=== PATIENT | male | born 1990 | race Caucasian/White ===

== ENCOUNTER 2025-01-06 18:06 | Emergency (ER) | payer MEDICARE, OTHER ==
[2025-01-06 18:34] VITALS: TEMP 97.9
[2025-01-06] MEDS: SODIUM CHLORIDE 0.9% 1,000 ML IV ONE (19:45)
[2025-01-06] MEDS: LORazepam 1 MG TAB PO STA (19:45)
--- NOTE | 2025-01-06 20:03 | ED ---
General Adult HPI - General Chief complaint: Alcohol Stated complaint: etoh Time Seen by Provider: 01/06/25 19:30 Source: patient, EMS, RN notes reviewed, old records reviewed Mode of arrival: EMS Limitations: no limitations - History of Present Illness Initial comments: Patient is a 34-year-old male who presents emergency department stating he wishes to be transferred for admission to [facility]. This is for alcohol abuse. He is otherwise cooperative. Denies current withdrawals. Last drink today. Presents with a family member/friend. Denies chest pain or shortness of breath. Denies any symptoms withdrawals. Denies any headaches. Is due to follow-up with his psychiatrist tomorrow. Is asking to be transferred to [facility]. Has no other acute complaints at this time. Denies any suicidal ideations, times complaints. Denies any visual or auditory hallucinations. - Related Data Allergies Allergy/AdvReac Type Severity Reaction Status Date / Time No Known Allergies Allergy Verified 01/06/25 19:49 Review of Systems ROS Statement: Those systems with pertinent positive or pertinent negative responses have been documented in the HPI. Review of Systems: CONST: Denies fever EYES: Denies blurry vision ENT: Denies nasal congestion C/V: Denies Chest pain RESP: Denies shortness of breath GI: Denies abdominal pain : Denies dysuria SKIN: Denies rash. MSK: Denies joint pain. NEURO: Denies headache ROS Other: All systems not noted in ROS Statement are negative. Past Medical History Past Medical History: No Reported History, Seizure Disorder Additional Past Medical History / Comment(s): epilepsy History of Any Multi-Drug Resistant Organisms: None Reported Past Surgical History: No Surgical Hx Reported Past Psychological History: ADD/ADHD, Anxiety, Bipolar, Depression, PTSD, Schizophrenia Smoking Status: Current every day smoker, Vaper Past Alcohol Use History: Abuse, Daily, Heavy Past Drug Use History: None Reported General Exam - General Exam Comments Initial Comments: General: Appears in no acute distress. Mildly anxious. No evidence of alcohol withdrawals at this time. HEAD: Normal with no signs of head trauma. EYES: PERRLA, EOMI, conjunctiva normal, no discharge. Pupils are 2 mm and equal bilaterally. ENT: Hearing grossly intact, normal oropharynx. RESPIRATORY: Clear breath sounds bilaterally. No wheezes, rales, or rhonchi. C/V: Regular rate and rhythm. S1 and S2 auscultated, no edema, peripheral pulses 2+ and intact throughout ABD: Abd is soft, nontender, nondistended EXT: No obvious deformity SKIN: No rashes or lesions observed on exposed skin. NEURO: Alert and oriented x 4. No acute focal deficits. Limitations: no limitations Course Vital Signs 01/06/25 18:24 Temperature 97.9 F Pulse Rate 118 H Respiratory 18 Rate Blood Pressure 126/81 O2 Sat by Pulse 98 Oximetry Medical Decision Making - Medical Decision Making Was pt. sent in by a medical professional or institution (, JAYLON, DIESEL SCOOP OPERATOR, urgent care, hospital, or [place] [facility] [place] facility...) When possible be specific @ -No Did you speak to anyone other than the patient for history (EMS, parent, family, police, friend...)? What history was obtained from this source @ -Spoke with patient's family, friend who is in agreement that she will take responsibility for him upon discharge. Did you review nursing and triage notes (agree or disagree)? Why? @ -I reviewed and agree with nursing and triage notes Were old charts reviewed (outside hosp., previous admission, EMS record, old EKG, old radiological studies, urgent care reports/EKG's, [place] [facility] facility records)? Report findings @ -No old charts were reviewed Differential Diagnosis (chest pain, altered mental status, abdominal pain women, abdominal pain men, vaginal bleeding, weakness, fever, dyspnea, syncope, headache, dizziness, GI bleed, back pain, seizure, CVA, palpatations, mental health, musculoskeletal)? @ -Alcohol intoxication, alcohol withdrawals, electrolyte abnormality. This list is not all inclusive. EKG interpreted by me (3pts min.). @ -None done X-rays interpreted by me (1pt min.). @ -None done CT interpreted by me (1pt min.). @ -None done U/S interpreted by me (1pt. min.). @ -None done What testing was considered but not performed or refused? (CT, X-rays, U/S, labs)? Why? @ -None What meds were considered but not given or refused? Why? @ -None Did you discuss the management of the patient with other professionals (professionals i.e. , JAYLON, DIESEL SCOOP OPERATOR, lab, RT, psych nurse, vp digital marketing social media and crm, fertilizer mixer, teacher, biosecurity officer, comp field case manager)? Give summary @ -No Was smoking cessation discussed for >3mins.? @ -No Was critical care preformed (if so, how long)? @ -No Were there social determinants of health that impacted care today? How? (Jose Miguel elessness, low income, unemployed, alcoholism, drug addiction, transportation, low edu. Level, literacy, decrease access to med. care, fci, rehab)? @ -No Was there de-escalation of care discussed even if they declined (Discuss DNR or withdrawal of care, Hospice)? DNR status @ -No What co-morbidities impacted this encounter? (DM, HTN, Smoking, COPD, CAD, Cancer, CVA, ARF, Chemo, Hep., AIDS, mental health diagnosis, sleep apnea, morbid obesity)? @ -Alcohol abuse Was patient admitted / discharged? Hospital course, mention meds given and route, prescriptions, significant lab abnormalities, going to OR and other pertinent info. @ -Patient is a 34-year-old male who presents emergency department asking to be transferred to [facility]. I did inform him that this is not something that we do out of our ER. He expressed understanding. He has no suicidal or homicidal ideations. Denies any hallucinations. He has no acute complaints. I did discuss with him the option of being admitted for monitoring for alcohol withdrawals and as he goes through the cessation process, however he states he would like to just go back home and drink more alcohol and follow-up with [facility] to get in there as he does not want to be admitted to the hospital. Denies any other drug use. States he is anxious and is asking for a dose of Ativan. He has no evidence of alcohol chills at this time. Vitals are within acceptable limits. States he is going to go home and drink more alcohol. I discussed with him at length, and as he does have a family/friend who is with him and is willing to take responsibility for him upon discharge, and he does not want to be admitted for alcohol withdrawals and alcohol cessation, and we cannot transfer him to [facility], and he does not meet criteria for any psychiatric evaluation, patient will be discharged home at this time in the care of of family/friend. She was in agreement this plan. Patient was in agreement this plan. Strict return precautions discussed. I instructed the patient to follow up with their PCP in the next 1-3 days. I provided contact information for follow up with [facility]Ps. I explained that the patient should return to the emergency department if they experience any worsening symptoms. Strict return precautions were discussed with the patient. The patient expressed understanding of these instructions. I answered all questions that the patient had. The patient was discharged home in fair condition with their prescriptions and follow up information. Undiagnosed new problem with uncertain prognosis? @ -No Drug Therapy requiring intensive monitoring for toxicity (Heparin, Nitro, Insulin, Cardizem)? @ -No Were any procedures done? @ -No Diagnosis/symptom? @ -Alcohol intoxication Acute, or Chronic, or Acute on Chronic? @ -Acute Uncomplicated (without systemic symptoms) or Complicated (systemic symptoms)? @ -uncomplicated Side effects of treatment? @ -No Exacerbation, Progression, or Severe Exacerbation? @ -No Poses a threat to life or bodily function? How? (Chest pain, [place], SD, pneumonia, PE, COPD, DKA, ARF, appy, cholecystitis, CVA, Diverticulitis, Homicidal, Suicidal, threat to staff... and all critical care pts) @ -Unlikely at this time Disposition Clinical Impression: Alcohol intoxication Disposition: HOME SELF-CARE Condition: Fair Instructions (If sedation given, give patient instructions): Alcohol Intoxication (ED) Additional Instructions: Do not stop drinking alcohol, to avoid going through withdrawals.. As you are not currently going through withdrawals, and you are not a danger to yourself or others, and you are willing to keep drinking alcohol, and you have a safe senior project controls specialist to be discharged home with, it is safe you to be discharged home at this time. Please return to the ER for any worsening symptoms. Follow-up with your psychiatrist as well as with [facility] if you wish to continue with alcohol cessation. Return if any concerns. Is patient prescribed a controlled substance at d/c from ED?: No Referrals: None,Stated [Primary Care Provider] - 1-2 days Forms: [facility] Time of Disposition: 20:00
[2025-01-06 20:26] VITALS: BP 120/80; PULSE 84; RESP 17
== END 2025-01-06 20:34 | disposition home or self-care (01) ==
LOC: EC 18:06
DX: F10.129 Alcohol abuse with intoxication, unspecified (principal); F17.290 Nicotine dependence, other tobacco product, uncomplicated
CPT/HCPCS: 99284